=== PATIENT | female | born 1975 | race Two or more races ===

== ENCOUNTER 2023-02-01 11:50 | Emergency (ER) | payer OTHER ==
[~2023-02-01] VITALS: Ht 160 cm; Wt 99.0 kg
[2023-02-01] MEDS ORDERED: cloNIDine HCL 0.1 MG TAB PO ONE (13:00)
[2023-02-01 13:06] VITALS: BP 170/92
[2023-02-01] MEDS ORDERED: KETOROLAC TROMETH 60MG/2ML VIAL IM ONE (13:30)
[2023-02-01] MEDS ORDERED: TRAM-297 PO (13:41)
== END 2023-02-01 14:05 | disposition home or self-care (01) ==
LOC: ER 11:50
DX: S46.912A Strain of unspecified muscle, fascia and tendon at shoulder and upper arm level, left arm, initial encounter (principal); M24.812 Other specific joint derangements of left shoulder, not elsewhere classified; J45.909 Unspecified asthma, uncomplicated; I10 Essential (primary) hypertension; X58.XXXA Exposure to other specified factors, initial encounter; Y93.89 Activity, other specified; Y92.69 Other specified industrial and construction area as the place of occurrence of the external cause; Y99.8 Other external cause status
CPT/HCPCS: 73030; 96372; 99283; J1885